=== PATIENT | female | born 1995 | race Caucasian/White ===

== ENCOUNTER 2024-12-14 05:40 | Inpatient (IN) ==
--- NOTE | 2024-11-30 12:39 | Anesthesiology Consultation ---
Date of Service November 30, 2024 Assessment & Plan (1) Encounter for pre-operative examination: Infectious disease screening: Per assessment on 11/30/24- No known recent infectious disease contacts or current infectious disease symptoms. 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 History Surgery Operation Date: 12/14/24 07:30 Proposed Procedures p Section (Delivery of Baby Through Abdominal Incision) - Michelle Dubose MD Height/Weight Height: 5 ft Weight: 72.121 kg Allergies Allergy/AdvReac Type Severity Reaction Status Date / Time No Known Allergies Allergy Verified 11/30/24 12:05 Medications Home Medications Medication Instructions Recorded Confirmed Last Taken prenat.vits,noris,[id number] 1 tab PO DAILY 12/05/23 11/30/24 Unknown acetone (urine) test (Ketone Urine #50 ea 06/19/24 11/26/24 Unknown Test strips) blood sugar diagnostic (OneTouch #150 ea 06/19/24 11/26/24 Unknown Verio test strips) blood-glucose meter (OneTouch #1 ea 06/19/24 11/26/24 Unknown Verio Reflect Meter) lancets 33 gauge (OneTouch Delica #150 ea 06/19/24 11/26/24 Unknown Plus Lancet) famotidine 20 mg tablet (Pepcid) 20 mg PO DAILY 11/30/24 11/30/24 Unknown Past Medical History Medical History Gestational diabetes With current and previous Diet controlled at present time SAB (spontaneous ) Past Family History Family History Mother Twin Other Diabetes Past Surgical History Surgical History Hx of section 2021; unplanned c/s and had epidural in place; pt notes no issues S/P wisdom tooth extraction Social History Smoking Status: Never smoker Do You Dip or Chew Tobacco: No Hx Alcohol Use: No Hx Substance Use: No
--- NOTE | 2024-12-11 09:27 | History & Physical Report ---
Date of Service December 11, 2024 Assessment & Plan (1) Previous delivery affecting : (2) Gestational diabetes mellitus (GDM) affecting , antepartum: (3) Encounter for pre-operative examination: Plan Discussed indications, risks, benefits, alternatives with risks including infection, bleeding, injury to adjacent structures (bowel, bladder, ureters, blood vessels, nerves, baby), possible need for blood transfusion and/or life saving hysterectomy, VTE. Consent reviewed in detail w/ pt and signed after all questions answered to her satisfaction. History of Present Illness Chief Complaint: preop Primary Care Provider: Yris Corbin PA-C 29 yo at 39+wks presents for preop to planned repeat CS. 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 CS G2 SAB G3 current denies hx stis Allergies Allergy/AdvReac Type Severity Reaction Status Date / Time No Known Allergies Allergy Verified 12/11/24 09:11 Home Medications Medication Instructions Recorded Confirmed Type prenat.vits,noris,[id number] 1 tab PO DAILY 12/05/23 12/11/24 History acetone (urine) test (Ketone Urine #50 06/19/24 12/11/24 Rx Test strips) blood sugar diagnostic (OneTouch #150 06/19/24 12/11/24 Rx Verio test strips) blood-glucose meter (OneTouch #1 06/19/24 12/11/24 Rx Verio Reflect Meter) lancets 33 gauge (OneTouch Delica #150 06/19/24 12/11/24 Rx Plus Lancet) famotidine 20 mg tablet (Pepcid) 20 mg PO DAILY 11/30/24 12/11/24 History Patient History Medical History Gestational diabetes With current and previous Diet controlled at present time SAB (spontaneous ) Surgical History Hx of section 2021; unplanned c/s and had epidural in place; pt notes no issues S/P wisdom tooth extraction Family History Mother Twin Other Diabetes Social History Smoking Status: Never smoker Second Hand Exposure: No; Do You Dip or Chew Tobacco: No; Hx Alcohol Use: No Hx Substance Use: No Preferred Language: Pashto Communication Ability: Effective Jewel Sawyer Required: No Beliefs That Will Affect Care: None marital status: marital status details: Casa (28) [phone] Current Living Situation: Family Current Living Situation Comment: lives with spouse, daughter, 1 dog, 1 cat, spouse to change litter current occupational status: employed 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 Feels Safe at Home: Yes Assistive Devices: Glasses Physical Exam Respiratory: normal respiratory effort, lungs clear to auscultation Cardiovascular: RRR, no murmur, no edema Genitourinary: OB Exam Abdomen: + heart tones (130s) Results & Data Laboratory Results OB Labs: Blood Type A Positive 05/13/24 Antibody Screen NEGATIVE 05/13/24 Hgb 12.2 g/dl (12.0-16.0) 09/25/24 Hct 36.2 % (37.0-47.0) L 09/25/24 MCV 85.1 fL (80.0-100.0) 05/13/24 Plt Count 277 K/uL (130-400) 05/13/24 Rubella IgG Antibody Non Immune (Immune) L 05/13/24 RPR Nonreactive (Nonreactive) 05/13/24 Treponema pallidum Ab Negative (Negative) 09/25/24 Hep Bs Antigen Negative (Negative) 05/13/24 Hep Bs Antigen NON-REACTIVE (NON-REACTIVE) 12/12/23 Hepatitis C Ab (EIA) NON-REACTIVE (NON-REACTIVE) 12/12/23 HIV 1&2 Ab/P24 Ag 4thGn Negative (Negative) 05/13/24 HIV (1&2) Ag & Ab Conf NON-REACTIVE (NON-REACTIVE) 12/12/23 OB Optional Labs: Chlamydia trachomatis RNA Not Detected (NotDetected) 05/13/24 Neisseria gonorrhoeae RNA Not Detected (NotDetected) 05/13/24 Labs Reviewed: declines genetics/afp--akh GBS neg Diagnostic Findings 11/19 EFW 40%, AC 67%, post plac Coding Level of Care Code None Diagnoses Previous delivery affecting O34.219 Gestational diabetes mellitus (GDM) affecting , antepartum O24.419 Encounter for pre-operative examination Z01.818
[2024-12-14 06:20] LABS: Hematocrit (blood only) 35.3 % (37.0-47.0); Hemoglobin 11.9 g/dl (12.0-16.0); Mean Corpuscular Hemoglobin 26.9 pg (25.0-34.0); Mean Corpuscular Hgb Conc 33.7 g/dL (32.0-36.0); Mean Corpuscular Volume 79.9 fL (80.0-100.0); Mean Platelet Volume 10.1 fL (9.4-12.4); Platelet Count 240 K/uL (130-400); RDW Coefficient of Variation 13.4 % (11.5-14.5); RDW Standard Deviation 37.8 fL (36.4-46.3); Red Blood Count 4.42 M/uL (4.20-5.40); White Blood Count 10.02 K/ul (4.8-10.8)
[2024-12-14] MEDS ORDERED: MoRPHine SULFATE PF 1 MG/ML 10 ML AMP/VIAL ONE (06:31)
[2024-12-14] MEDS ORDERED: DEXAMETHASONE SOD INJ 4 MG/ML VIAL ONE (06:31)
[2024-12-14] MEDS ORDERED: OXYTOCIN 10 UNITS/ML VIAL ONE (06:31)
[2024-12-14] MEDS ORDERED: KETOROLAC 30 MG/ML VIAL ONE (06:31)
[2024-12-14] MEDS ORDERED: ONDANSETRON INJ 2 MG/ML 2 ML VIAL ONE (06:31)
[2024-12-14] MEDS ORDERED: PHENYLEPHRINE HCL 25 MG/250 ML NSS IV ONE (06:31)
[2024-12-14] MEDS ORDERED: fentaNYL citrate PF 100 MCG/2 ML VIAL ONE (06:31)
[2024-12-14] MEDS: ACETAMINOPHEN 500 MG TAB PO SCH (06:32)
[2024-12-14] MEDS: SODIUM CHLORIDE 0.9% 1,000 ML IV SCH ×2 (07:00→14:04)
--- NOTE | 2024-12-14 07:20 | History & Physical Bridge Note ---
Date of Service December 14, 2024 History & Physical Bridge Note I have examined the patient, reviewed the History & Physical and in the interval since the performance of the History & Physical I have noted the following changes of clinical significance: no changes noted
[2024-12-14] MEDS: CITRIC ACID/SODIUM CITRATE 15 ML UDC PO SCH (07:25)
[2024-12-14] MEDS: ceFAZolin 2,000 MG in SYRINGE 0 ML IV SCH (07:25)
[2024-12-14] MEDS ORDERED: ONDANSETRON INJ 2 MG/ML 2 ML VIAL IV PRN ×2 (07:29→09:16)
[2024-12-14] MEDS ORDERED: ePHEDrine sulfate 50 MG/ML AMP IV PRN (07:29)
[2024-12-14] MEDS ORDERED: NALBUPHINE HCL INJ 10 MG/ML AMP IV PRN (07:29)
[2024-12-14] MEDS ORDERED: NALOXONE HCL 0.08 MG in SYRINGE 1.8 ML IV PRN (07:29)
[2024-12-14] MEDS ORDERED: NALOXONE HCL 0.4 MG/1 ML VIAL/CARP IV PRN (07:29)
[2024-12-14] MEDS ORDERED: diphenhydrAMINE 50 MG/ML VIAL IV PRN ×2 (07:29→09:16)
[2024-12-14] MEDS ORDERED: PROMETHAZINE 6.25 MG/50.25 ML BAG IV PRN (07:29)
[2024-12-14] MEDS ORDERED: NALOXONE HCL 1 MG in SODIUM CHLORIDE 0.9% 1,000 ML IV PRN (07:29)
[2024-12-14] MEDS ORDERED: HYDROmorphone INJ 0.5 MG/0.5 ML SYR IV PRN (07:29)
[2024-12-14] MEDS ORDERED: DC INTRASPINAL MORPHINE SCH (07:30)
[2024-12-14] MEDS ORDERED: NO NARCOTICS OR SEDATIVES SCH (07:30)
--- NOTE | 2024-12-14 08:41 | Operative Report ---
Post Operative Report Pre & Post Diagnosis Operation Date: 12/14/24 07:30 Pre-Op Diagnosis: 1. IUP at 39 Weeks 2. Elective Repeat Section 3. A1GDM Post-Op Diagnosis: 1. Same I identified the patient and participated in the time-out.: Yes Procedure Operation Date: 12/14/24 07:30 Actual Procedures p Repeat Low Transverse Section for the of a live boy at 0757(Bilateral) - Michelle Dubose MD Surgeon Michelle Dubose MD Aerial Photogrammetrist MD [place] Quantitative Blood Loss (QBL) 354 Findings Consistent with Post-Op Diagnosis Normal appearing uterus, bilateral fallopian tubes, and ovaries. Viable male infant with APGARs of 9 and 9 Fluids 50cc UOP by ramos catheter Specimens Placenta, cord blood Drains Ramos draining clear urine Anesthesia Type Spinal Complications none Disposition Accompanied Patient To Recovery: Yes Disposition: L&D Indications 29 yo at 39 5/7 wga presents for planned repeat CS Description of Procedure The patient was taken to the operating room after consents were ensured. The p atient was properly identified. Spinal anesthesia was obtained without difficulty. The patient was placed in a dorsal supine position with left lateral tilt, then prepped and draped in normal sterile fashion. Surgical time out was performed. Antibiotics were given for prophylaxis. Anesthesia was tested to ensure adequate surgical levels. Pfannenstiel skin incision was performed and carried down to the underlying fascia with a knife. The fascia was then nicked in the midline and extended laterally with pickups and King scissors. Superior portion of the fascia was grasped with Kochers x2 and elevated off the underlying rectus muscles using blunt dissection. Inferior portion of the fascia was then grasped with Otto clamps x2 and also elevated off the underlying muscles with blunt dissection. Midline was identified. The peritoneum was then entered and extended to provide adequate room for delivery of baby. A hand was inserted into the abdomen, uterus was noted to be clear of adhesions. Bladder blade was inserted, bladder flap was created in the usual fashion. A low transverse uterine incision was made in the uterus and extended bluntly in a superior to inferior fashion. Amniotomy was made with clear fluid at the time of rupture. head was grasped and elevated through the hysterotomy in an atraumatic fashion. The baby delivered in TOMAS position, no nuchal cord. Remainder of the body delivered without incident. Nose and mouth were bulb suctioned on the surgical field. The cord was double clamped and cut, baby was handed off to awaiting pediatrics staff. Cord segment and blood were obtained. Placenta was then expressed from the uterus. The uterus was exteriorized. Several passes were made inside the uterus to remove the remaining membranes. Attention was then turned to the hysterotomy, which was then closed with a running locked suture of 0 Vicryl on a CTX needle. An imbricating layer was then performed using 0-Monocryl. There was noted to be good hemostasis. The posterior cul-de-sac was then inspected and cleaned of clot and debris. The hysterotomy was again inspected and noted to be hemostatic. The uterus was returned to the abdomen. The right and left pericolic gutters were cleaned of all clot and debris. The hysterotomy was again noted to be hemostatic. Space of Retzius was noted to be hemostatic. The fascia was then closed with a running suture of 0 Vicryl on a CT1 needle. Subcutaneous tissue was copiously irrigated and noted to be hemostatic. Subcutaneous tissue was re-approximated using 2-0 plain gut. The skin was then closed with a running suture of 3-0 Monocryl in a subcuticular fashion. At termination of the procedure, fundal pressure was applied and a moderate amount of lochia was expressed. Pressure dressing was applied to the patient. She tolerated the procedure well. All sponge, needle, instrument counts were correct x 2. I attest to the content of the Intraoperative Record and any orders documented therein. Any exceptions are noted below. OB Procedure Charges 40662
[2024-12-14] MEDS ORDERED: PROMETHAZINE 12.5 MG/50.5 ML BAG IV PRN (09:16)
[2024-12-14] MEDS ORDERED: oxyCODONE HCL IR 5 MG TAB (IMMEDIATE RELEASE) PO PRN (09:16)
[2024-12-14] MEDS ORDERED: CALCIUM CARBONATE 500 MG CHEWABLE TAB PO PRN (09:16)
[2024-12-14] MEDS ORDERED: HYDROCORTISONE ACETATE 25 MG SUPP PR PRN (09:16)
[2024-12-14] MEDS ORDERED: SENNA 8.6 MG TAB PO PRN (09:16)
[2024-12-14] MEDS ORDERED: MAGNESIUM HYDROXIDE SUSP 30 ML UDC PO PRN (09:16)
[2024-12-14] MEDS ORDERED: BENZOCAINE 20% SPRY 85 APPLN/85 GM CAN EXT PRN (09:16)
--- NOTE | 2024-12-14 09:19 | Anesthesiology Progress Note ---
Date of Service December 14, 2024 Anesthesia Post Procedure Vital Signs Vital Signs: Temp Pulse Resp BP Pulse Ox O2 Del Method 12/14/24 09:16 89 99 12/14/24 09:11 75 99 12/14/24 09:10 97.7 F 91 H 16 97/61 L 99 12/14/24 09:09 91 H 97/61 L 12/14/24 09:06 88 98 12/14/24 09:01 96 H 98 12/14/24 09:00 97.7 F 96 H 18 126/65 98 12/14/24 08:59 108 H 126/65 12/14/24 08:56 92 H 100 12/14/24 08:51 97 H 98 12/14/24 08:50 97.5 F L 110 H 16 103/58 L 100 12/14/24 08:46 101 H 98 12/14/24 08:41 95 H 103/58 L 98 12/14/24 07:01 16 12/14/24 07:01 97.9 F 16 12/14/24 07:00 97.9 F 99 H 16 115/67 12/14/24 07:00 Room Air 12/14/24 07:00 99 H 115/67 12/14/24 05:54 98.1 F 18 Room Air 12/14/24 05:49 98.1 F 110 H 18 115/80 Transfer of Care Handoff Completed per policy Notes Mental Status: alert / awake / arousable and participated in evaluation Patient Amnestic to Procedure: No Nausea / Vomiting: adequately controlled Pain: adequately controlled Airway Patency, RR, SpO2: stable & adequate BP & HR: stable & adequate Hydration State: stable & adequate Neuraxial Anesthesia: was administered and sensory block is resolving Anesthetic Complications: no major complications apparent and Pt Satisfied with anesthetic care
[2024-12-14] MEDS: DIPHTHER/TETAN/PERTUS Vaccine (Tdap, Adol/Adult) 0.5mL IM ONE (09:46)
[2024-12-14] MEDS ORDERED: Nursing to Pharmacy Communication SCH (10:00)
[2024-12-14] MEDS: OXYTOCIN 20 UNITS/LR 1,002 ML IV SCH (10:44)
[2024-12-14] MEDS: MoRPHine SULFATE PF 1 MG/ML 10 ML AMP/VIAL INT SPINAL ONE (12:19)
[2024-12-14] MEDS: LACTATED RINGER'S 1,000 ML IV SCH (12:19)
[2024-12-14] MEDS: SIMETHICONE 80 MG CHEW PO SCH (14:03)
[2024-12-14] MEDS: KETOROLAC 30 MG/ML VIAL IV SCH (14:32)
[2024-12-14] MEDS: ACETAMINOPHEN 325 MG TAB PO SCH (14:36)
[2024-12-14] MEDS: DOCUSATE SODIUM 100 MG CAP PO SCH (20:40)
[2024-12-15] MEDS ORDERED: HYDROmorphone INJ 0.5 MG/0.5 ML SYR IV PRN (01:30)
[2024-12-15] MEDS ORDERED: diphenhydrAMINE Capsule 25 MG CAP PO PRN (01:30)
--- NOTE | 2024-12-15 07:13 | Obstetrical Progress Note ---
Date of Service December 15, 2024 Assessment & Plan (1) Encounter for care and examination after delivery: 29 [facility] -Meeting all pp milestones -Rh+/rubella nonimm/, mmr ordered -f/u 6 weeks for appt, continue routine care Subjective Ambulation: ambulating normally Voiding: no voiding problems Passing Gas:: Yes Diet Tolerance:: regular diet Lochia:: Small Feeding Type:: breast feeding Pain well managed with medication Review of Systems Denies fevers, chills, n/v, FRANCIS, CP, SOB Physical Exam Constitutional WD/WN, vitals as above no acute distress Respiratory normal respiratory effort, lungs clear to auscultation Cardiovascular RRR, no murmur, no edema Gastrointestinal (Abdomen) Percussion/Palpation: abdomen soft; abdomen nontender fundus firm at umbilicus and NT, incision c/d/i Musculoskeletal BLE symmetric, nonerythematous, nontender Results & Data Vital Signs (Past 12 Hours) Vital Signs Temp Pulse Resp BP Pulse Ox Pulse Ox O2 Del Method 12/15/24 02:30 18 99 12/15/24 02:30 98.1 F 86 18 115/70 99 Room Air 12/15/24 01:30 18 98 12/15/24 00:30 18 97 12/14/24 23:30 18 97 12/14/24 23:00 97.7 F 82 18 106/61 98 Room Air 12/14/24 22:30 18 97 12/14/24 21:30 18 98 12/14/24 20:30 18 98 12/14/24 19:45 18 98 12/14/24 19:45 97.9 F 90 18 107/66 98 Room Air 12/14/24 19:45 98 O2 Del Method 12/15/24 02:30 12/15/24 02:30 12/15/24 01:30 12/15/24 00:30 12/14/24 23:30 12/14/24 23:00 12/14/24 22:30 12/14/24 21:30 12/14/24 20:30 12/14/24 19:45 12/14/24 19:45 12/14/24 19:45 Room Air
[2024-12-15 07:19] LABS: Basophils # (auto) 0.04 K/uL (0.00-0.20); Basophils % (auto) 0.3 %; Eosinophils # (auto) 0.05 K/uL (0.00-0.50); Eosinophils % (auto) 0.4 %; Hematocrit (blood only) 32.5 % (37.0-47.0); Hemoglobin 10.8 g/dl (12.0-16.0); Immature Granulocytes # (auto) 0.05 K/uL (0.01-0.20); Immature Granulocytes % (auto) 0.4 %; Lymphocytes # (auto) 2.44 K/uL (1.20-3.40); Lymphocytes % (auto) 20.7 %; Mean Corpuscular Hemoglobin 27.6 pg (25.0-34.0); Mean Corpuscular Hgb Conc 33.2 g/dL (32.0-36.0); Mean Corpuscular Volume 83.1 fL (80.0-100.0); Mean Platelet Volume 10.5 fL (9.4-12.4); Monocytes # (auto) 0.72 K/uL (0.11-0.59); Monocytes % (auto) 6.1 %; Neutrophils # (auto) 8.51 K/uL (1.40-6.50); Neutrophils % (auto) 72.1 %; Platelet Count 240 K/uL (130-400); RDW Coefficient of Variation 13.9 % (11.5-14.5); RDW Standard Deviation 41.1 fL (36.4-46.3); Red Blood Count 3.91 M/uL (4.20-5.40); White Blood Count 11.81 K/ul (4.8-10.8)
[2024-12-15] MEDS: PRENATAL VITAMIN 1 TAB PO SCH (08:33)
[2024-12-15] MEDS: FERROUS SULFATE 325 MG TAB PO SCH (08:33)
[2024-12-15] MEDS ORDERED: KETOROLAC 30 MG/ML VIAL IV PRN (08:38)
[2024-12-15] MEDS: IBUPROFEN 600 MG TAB PO SCH (08:39)
[2024-12-15] MEDS: MEASLES, MUMPS & RUBELLA VIRUS VACCINE (MMR) 0.5ML VIAL SQ ONE (08:40)
[2024-12-15] MEDS: bisacodyL 5 MG TABEC PO SCH (20:20)
[2024-12-16 00:06] VITALS: RESP 18
[2024-12-16 06:36] LABS: Hematocrit (blood only) 29.8 % (37.0-47.0); Hemoglobin 9.8 g/dl (12.0-16.0)
--- NOTE | 2024-12-16 07:27 | Obstetrical Progress Note ---
Date of Service December 16, 2024 Assessment & Plan (1) Encounter for care and examination after delivery: Plan Doing well, desires d/c. INstructions reviewed. Day #:: 2 Subjective Ambulation: ambulating normally Voiding: no voiding problems Passing Gas:: Yes Diet Tolerance:: regular diet Lochia:: Small Feeding Type:: breast feeding Pain controlled. Anxious to be d/c. Physical Exam Constitutional WD/WN, vitals as above Cardiovascular Extremities: no calf tenderness and no edema Gastrointestinal (Abdomen) soft, nt, nd ff/nt at u incision c/d/i Psychiatric A+Ox3, euthymic affect Results & Data Vital Signs (Past 12 Hours) Vital Signs Temp Pulse Resp BP Pulse Ox O2 Del Method 12/15/24 23:30 Room Air 12/15/24 23:30 36.3 C L 89 18 108/75 12/15/24 19:30 Room Air 12/15/24 19:30 36.7 C 75 16 122/75 98 Room Air
[2024-12-16] MEDS ORDERED: bisacodyL 10 MG SUPP PR PRN (08:38)
[2024-12-16] MEDS: IBUPROFEN 600 MG TAB PO PRN (08:40)
[2024-12-16 08:50] VITALS: BP 110/72; PULSE 77; TEMP 98.1; O2SAT 99
[2024-12-16] MEDS ORDERED: ACETAMINOPHEN 325 MG TAB PO PRN (14:38)
--- NOTE | 2024-12-18 09:19 | Discharge Summary ---
Date of Service December 18, 2024 Admission HPI Per Admitting Provider 29 yo at 39+wks presents for preop to planned repeat CS. 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 CS G2 SAB G3 current denies hx stis Admission Exam (Per Admitting) Constitutional WD/WN, vitals as above no acute distress Respiratory normal respiratory effort, lungs clear to auscultation Cardiovascular RRR, no murmur, no edema Gastrointestinal (Abdomen) Percussion/Palpation: abdomen soft; abdomen nontender Genitourinary OB Exam Abdomen: + heart tones (130s) Discharge Data Consultations 12/14/24 05:40 Consult Anesthesiology Stat Procedures Performed Operation Date: 12/14/24 07:30 Actual Procedures p Section in LD; Repeat lower uterine transverse Section for the of a live boy infant at 0757(Bilateral) - Michelle Dubose MD Hospital Course (1) Encounter for care and examination after delivery: see operative report for delivery details. Postop course was uncomplicated and she was discharged home on POD2 Coding Level of Care Code None Diagnoses Encounter for care and examination after delivery Z39.2
== END 2024-12-16 10:50 | disposition home or self-care (01) | DRG 788 ==
LOC: 4S1 05:40 → EDSTATUS 07:30 → 4E2 11:41
DX: Z37.0 Single live birth; O24.410 Gestational diabetes mellitus in pregnancy, diet controlled; Z79.899 Other long term (current) drug therapy; O34.211 Maternal care for low transverse scar from previous cesarean delivery; Z3A.39 39 weeks gestation of pregnancy